=== PATIENT | female | born 1985 | race Caucasian/White ===

== ENCOUNTER 2024-06-15 08:18 | Emergency (ER) | payer BC, SELFPAY ==
[2024-06-15 08:20] VITALS: BP 110/72
--- NOTE | 2024-06-15 08:42 | ED.GENMED ---
History of Present Illness
General
Chief Complaint: Allergic Reaction
Source: patient
Exam Limitations: none
Time Seen by Provider: 06/15/24 08:30
Nursing documentation reviewed up to this point in time: agreed with
History of Present Illness
History of Present Illness:
39 yo female states 2 days ago she had a new eyelash tint applied that stayed on for 10 minutes, rinsed off and color should last 4-6 weeks. 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 Yesterday awakened with itchy, red, eyes. She took Zyrtec last night
and awakened today with worse swelling, itching, watering and eyeball and eyelid redness. Denies change in vision.
She saw her Integrative [facility] provider yesterday and given Neomycin/Polymixin/Dexamethasone eye drops which she has been using with no relief (has had total of 4 doses).
Past History
Past History
ED Past Medical History: None
ED Past Surgical History: Tonsilectomy
Social History
Tobacco: Non-smoker
Alcohol: None
Personal:
Living: with family
Employment: Employed
Review of Systems
Review of Systems
Allergies reviewed?: Yes
All Other Systems: ROS reviewed and negative except as documented in HPI and ROS
Constitutional: Denies fever
EENT: Reports other (swelling, itching, redness, tearing both eyes. Denies change in vision)
Respiratory: Reports no symptoms
ABD/GI: Denies nausea
Skin: Reports itching (swelling, redness both periorbital areas)
Neurological: Reports no symptoms
Phy Exam
Physical Exam
Physical Exam:
GENERAL: No acute distress. A&Ox3.
CONSTITUTIONAL: Afebrile.
EYES: PERRL, hyperemic conjunctivae, eyelids itchy, red, mildly swollen. Watery discharge.
ENMT: moist mucus membranes, Pharynx nl
RESPIRATORY: Regular respirations, nonlabored, lungs clear.
CARDIOVASCULAR: Regular rate and rhythm, no murmurs, no rubs.
MUSCULOSKELETAL: Moves with ease. Well perfused.
SKIN: Warm, dry, pink
PSYCH: Normal mood and affect. Well kept, interactive and appropriate
NEUROLOGIC: Awake, alert and oriented. No focal neurological deficits
Eye Exam
Eye Exam: PERRL, EOMI and globe normal
Eye Exam General: PERRL: bilateral and EOM intact: bilateral
Pupil Exam: Bilateral: round and reactive
Conjunctival Changes: bilateral: watery discharge (hyperemic bilaterally)
Eyelid Exam: red and inflamed: Bilateral
Type of Exam: fluorescein (No corneal abrasion)
Course
Orders/Labs/Results
Orders:
Orders
06/15/24 08:40
Dexamethasone [Decadron] 10 mg PO NOW STA
Diphenhydramine [Benadryl] 50 mg PO NOW STA
06/15/24 08:42
Visual Acuity- Treatment ONCE
Vital Signs
Initial and Last Documented VS:
Initial Vital Signs
Temp Pulse Resp BP Pulse Ox
98.4 F 69 18 110/72 98
06/15/24 08:20 06/15/24 08:20 06/15/24 08:20 06/15/24 08:20 06/15/24 08:20
Last Documented Vital Signs
Temp Pulse Resp BP Pulse Ox
98.4 F 69 18 110/72 99
06/15/24 08:20 06/15/24 08:20 06/15/24 08:20 06/15/24 08:20 06/15/24 08:58
MDM/Problems Addressed
Differential Diagnosis Includes:
chemical conjunctivitis, allergic reaction, periorbital cellulitis
MDM/Problems Addressed:
39 yo female states 2 days ago she had a new eyelash tint applied that stayed on for 10 minutes, rinsed off and color should last 4-6 weeks. 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 Yesterday awakened with itchy, red, eyes. She took Zyrtec last night
and awakened today with worse swelling, itching, watering and eyeball and eyelid redness. Denies change in vision.
She saw her Integrative [facility] provider yesterday and given Neomycin/Polymixin/Dexamethasone eye drops which she has been using with no relief (has had total of 4 doses).
Afebrile, NAD
No corneal abrasion, will have pt stop the antibiotic/steroid eye drops as pt states irritation is worse after starting it, no corneal abrasion and this can act as an irritant.
Rx for Prednisone 40 mg daily x 3 days sent to her pharmacy
To continue Benadryl or Zyrtec
Referred to ophthalmology in 3 days if not much improved
[facility]
*Critical Care Note
Total Time (30-74mins, 75-104mins- exclusive of procedures): Not Applicable
ED Attending Note
-
Portions of this chart may have been created with voice recognition software.� Occasional wrong word or��sound alike� substitutions may have occurred due to the inherent limitations of voice recognition software.
Discharge Plan
Departure
Patient Disposition: Home (Routine Discharge)
Date of Disposition: 06/15/24
Time of Disposition: 09:13
Patient with high blood pressure during this ER visit?: No
Condition: Good
Discharge Problem:
Acute chemical conjunctivitis of both eyes
Prescriptions:
New
prednisone 20 mg tablet
40 mg PO DAILY Qty: 6 0RF
Referrals:
Last Alex DO [Family Provider] -
Rissa Harris MD [Active] - Follow up in 2-3 days
Stand Alone Forms: Return to Work
Activity Restrictions/Additional Instructions:
As we discussed, cool compress 15 minutes off and on today to soothe and minimize swelling
I sent a prescription to your pharmacy for Prednisone to take 40 mg daily for 3 days, start it tomorrow as you were given a dose here today.
Stop the antibiotic/steroid eye drops.
See the eye doctor in 3 days if not much improved by then.
Seek medical care immediately for loss of vision, eyeball pain, fever, increasing swelling or redness around the eyes or feeling worse in any way.
Interventions
Interventions:
*Risk Screen - Suicide Last Done: 06/15/24 08:20
*General Assessment Last Done: 06/15/24 08:20
*Neglect/Abuse Screening Last Done: 06/15/24 08:20
ED- Fall Risk Assessment Last Done: 06/15/24 08:58
*ED COVID-19 Vaccine History Last Done: 06/15/24 08:58
*Nursing Disposition Last Done: 06/15/24 09:45
ED- Cardiac Assessment Last Done: 06/15/24 08:58
ED- Pulmonary Assessment Last Done: 06/15/24 08:58
ED-Skin Assessment Last Done: 06/15/24 08:58
Discharge Date and Time
Discharge Date/Time: 06/15/24 09:46
Print Language: CZECH
[2024-06-15] MEDS: BENADRYL 50 MG PO (08:47)
[2024-06-15] MEDS: DECADRON 10 MG PO (08:47)
[2024-06-15 08:58] VITALS: BMI 23.4
== END 2024-06-15 09:46 | disposition home or self-care (01) ==
LOC: EMR 08:18
PROVIDERS: EMERGENCY PHYSICIAN Emergency Medicine; FAMILY PHYSICIAN Family Medicine Sports Medicine
DX: T49.4X1A Poisoning by keratolytics, keratoplastics, and other hair treatment drugs and preparations, accidental (unintentional), initial encounter (principal); H10.213 Acute toxic conjunctivitis, bilateral; R22.0 Localized swelling, mass and lump, head; L29.9 Pruritus, unspecified; Z91.048 Other nonmedicinal substance allergy status; Z88.3 Allergy status to other anti-infective agents
CPT/HCPCS: 99283